=== PATIENT | male | born 1965 | race African-American/Black ===

== ENCOUNTER 2024-06-26 12:13 | Inpatient (IN) | payer MEDICAID, OTHER ==
[~2024-06-26] VITALS: Ht 172.7 cm; Wt 97.3 kg
[2024-06-26 12:43] VITALS: PULSE 71; RESP 17; O2SAT 97
[2024-06-26] MEDS: HYDROcodone-ACET 5/325MG TAB PO ONE (13:13)
[2024-06-26 14:02] LABS: Chloride 109 mmol/L (98-107); Potassium 3.9 mmol/L (3.5-5.1); Sodium 142 mmol/L (136-145)
[2024-06-26 14:03] LABS: Anion Gap 3 (5-15); Calcium 9.5 mg/dL (8.7-10.4); Carbon Dioxide 30 mmol/L (20-31)
[2024-06-26 14:08] LABS: BUN/Creatinine Ratio 8.8 (10.0-20.0); Blood Urea Nitrogen 22 mg/dL (9-23); Glucose 102 mg/dL (74-106)
[2024-06-26 14:36] LABS: Basophils # (auto) 0 10 ^3/uL (0-0.2); Basophils % (auto) 0.3 % (0.0-2.0); Eosinophils # (auto) 0.1 10 ^3/uL (0-0.8); Eosinophils % (auto) 1.6 % (0.0-7.0); Hematocrit 44.2 % (41.0-53.0); Hemoglobin 14.7 g/dL (13.5-17.5); Lymphocytes # (auto) 2.2 10 ^3/uL (0.4-5.4); Lymphocytes % (auto) 24.9 % (10.0-50.0); Mean Corpuscular Hemoglobin 30.6 pg (28.0-32.0); Mean Corpuscular Hgb Conc. 33.2 g/dL (32.0-36.0); Mean Corpuscular Volume 92.4 fL (80.0-100.0); Monocytes # (auto) 0.8 10 ^3/uL (0-1.3); Monocytes % (auto) 8.5 % (0.0-12.0); Neutrophils # (auto) 5.8 10 ^3/uL (1.6-8.6); Neutrophils % (auto) 64.7 % (37.0-80.0); Nucleated Red Blood Cells % 0.1 %; Platelet Count (auto) 252 10^3/uL (140-450); Red Blood Cells 4.78 10^6/uL (4.5-5.90); Red Cell Distribution Width 14.6 % (11.8-14.3)
[2024-06-26] MEDS ORDERED: DOCUSATE SOD 100 MG CAP PO PRN (16:30)
[2024-06-26] MEDS: SODIUM CHLORIDE 0.9% 1,000 ML IV ONE (17:17)
[2024-06-26] MEDS ORDERED: NITROGLYCERIN 0.4 MG SL TAB SL PRN (17:30)
[2024-06-26 18:41] LABS: Creatinine, Urine 206.74 mg/dL (30.0-125.0)
[2024-06-26 21:50] VITALS: BP 130/71; PULSE 71; RESP 18; TEMP 98.3; O2SAT 95
[2024-06-26] MEDS: ONDANSETRON HCL 4 MG/2 ML VIAL IV PRN (21:52)
[2024-06-26] MEDS: MORPHINE SULFATE INJ 2 MG/ml SYRG IV PRN (21:53)
[2024-06-26 22:00] VITALS: BP 130/71; PULSE 71; RESP 18; TEMP 98.3; O2SAT 95
[2024-06-26] MEDS ORDERED: QUET100T47 PO (23:08)
[2024-06-26] MEDS ORDERED: LOSA-535 PO (23:08)
[2024-06-26] MEDS ORDERED: ATOR40TA52 PO (23:08)
[2024-06-26] MEDS ORDERED: SENN-58 PO (23:08)
[2024-06-26] MEDS ORDERED: FURO20TA3 PO (23:08)
[2024-06-26] MEDS ORDERED: KEP500T PO (23:08)
[2024-06-26] MEDS ORDERED: CARV25TA55 PO (23:08)
[2024-06-26] MEDS ORDERED: DOXA1TAB42 PO (23:08)
[2024-06-26] MEDS ORDERED: HYDR12.59 PO (23:08)
[2024-06-26] MEDS ORDERED: MELA3TAB27 PO (23:08)
[2024-06-26] MEDS ORDERED: NIC21P TOP (23:08)
[2024-06-26] MEDS ORDERED: POTA10TA48 PO (23:08)
[2024-06-27] VITALS (7 sets, daily range): BP systolic 114–151; BP diastolic 68–106; PULSE 60–70; RESP 18; TEMP 97.7–99; O2SAT 95–99
[2024-06-27] MEDS ORDERED: hydrALAZINE HCL 20 MG/ML VL IV PRN (12:45)
[2024-06-27 16:09] LABS: Basophils # (auto) 0 10 ^3/uL (0-0.2); Basophils % (auto) 0.3 % (0.0-2.0); Eosinophils # (auto) 0.2 10 ^3/uL (0-0.8); Eosinophils % (auto) 2.7 % (0.0-7.0); Hematocrit 41.6 % (41.0-53.0); Hemoglobin 13.7 g/dL (13.5-17.5); Lymphocytes # (auto) 2.6 10 ^3/uL (0.4-5.4); Lymphocytes % (auto) 33.3 % (10.0-50.0); Mean Corpuscular Hemoglobin 30.6 pg (28.0-32.0); Mean Corpuscular Volume 92.9 fL (80.0-100.0); Monocytes # (auto) 0.6 10 ^3/uL (0-1.3); Monocytes % (auto) 8.1 % (0.0-12.0); Neutrophils # (auto) 4.3 10 ^3/uL (1.6-8.6); Neutrophils % (auto) 55.6 % (37.0-80.0); Nucleated Red Blood Cells % 0.1 %; Platelet Count (auto) 242 10^3/uL (140-450); Red Blood Cells 4.48 10^6/uL (4.5-5.90); Red Cell Distribution Width 14.1 % (11.8-14.3); White Blood Cell 7.7 10^3/uL (4.4-10.8)
[2024-06-27 16:28] LABS: Alanine Aminotransferase 15 U/L (7-40); Albumin 3.6 g/dL (3.2-4.8); Alkaline Phosphatase 79 U/L (46-116); Anion Gap 3 (5-15); Aspartate Aminotransferase 15 U/L (13-40); BUN/Creatinine Ratio 13.4 (10.0-20.0); Bilirubin, Total 1.5 mg/dL (0.2-1.0); Blood Urea Nitrogen 13 mg/dL (9-23); Calcium 9.2 mg/dL (8.7-10.4); Carbon Dioxide 28 mmol/L (20-31); Chloride 106 mmol/L (98-107); Glucose 92 mg/dL (74-106); Potassium 3.4 mmol/L (3.5-5.1); Sodium 137 mmol/L (136-145); Total Protein 6.7 g/dL (5.7-8.2)
[2024-06-27] MEDS: MELATONIN 3 MG PO SCH (18:00)
[2024-06-27] MEDS: [UNRECOGNIZED DRUG - OTHER] PO SCH (18:00)
[2024-06-27] MEDS: ATORVASTATIN 20 MG TAB PO SCH (21:29)
[2024-06-27] MEDS: CARVEDILOL 12.5 MG TAB PO SCH (21:30)
[2024-06-28 01:00] VITALS: BP 127/77; PULSE 65; RESP 17; TEMP 98.7; O2SAT 96
[2024-06-28 05:00] VITALS: BP 125/86; PULSE 80; RESP 20; O2SAT 97
[2024-06-28] MEDS: POTASSIUM EFFERVESENT TAB 25 MEQ GT ONE ×2 (06:45→09:45)
[2024-06-28] MEDS ORDERED: POTASSIUM CHL 20MEQ/100ML 100 ML IV ONE ×2 (06:45→08:00)
[2024-06-28 09:00] VITALS: BP 134/82; PULSE 69; RESP 16; TEMP 97.8; O2SAT 99
[2024-06-28 09:24] LABS: Anion Gap 5 (5-15); Carbon Dioxide 26 mmol/L (20-31); Chloride 107 mmol/L (98-107); Potassium 3.6 mmol/L (3.5-5.1); Sodium 138 mmol/L (136-145)
[2024-06-28 09:25] LABS: Calcium 9.4 mg/dL (8.7-10.4)
[2024-06-28 09:29] VITALS: BP 127/77; PULSE 65; TEMP 36.6
[2024-06-28 09:30] LABS: BUN/Creatinine Ratio 18.1 (10.0-20.0); Blood Urea Nitrogen 15 mg/dL (9-23); Glucose 96 mg/dL (74-106); Magnesium 1.8 mg/dL (1.6-2.6)
[2024-06-28] MEDS: LOSARTAN POTASSIUM 50 MG TAB PO SCH (09:44)
== END 2024-06-28 12:45 | disposition home or self-care (01) | DRG 54 ==
LOC: ER 12:13 → EDBD 12:13 → OVERFLOW 17:30 → WEST WING 17:31
PROVIDERS: ADMIT Internal Medicine; ATTEND Internal Medicine
DX: R51.9 Headache, unspecified (principal); N17.9 Acute kidney failure, unspecified; I69.354 Hemiplegia and hemiparesis following cerebral infarction affecting left non-dominant side; I10 Essential (primary) hypertension; E78.5 Hyperlipidemia, unspecified; F32.A Depression, unspecified; W01.0XXA Fall on same level from slipping, tripping and stumbling without subsequent striking against object, initial encounter; Y93.89 Activity, other specified; Y92.89 Other specified places as the place of occurrence of the external cause; Y99.8 Other external cause status
CPT/HCPCS: 36415; 70450; 76775; 80048; 80053; 82570; 83735; 84300; 85025; 87081; 96361; 96374; 99291; G0378; J2405